=== PATIENT | male | born 1980 | race Caucasian/White ===

== ENCOUNTER 2021-05-30 19:53 | Emergency (ER) | payer OTHER ==
[~2021-05-30] VITALS: Ht 167.6 cm; Wt 81.6 kg
[2021-05-30 20:49] LABS: BASO % 0.3 % (0.0-1.0); HEMATOCRIT 48.1 % (42.0-52.0); LYMPH # 0.7 10*3/uL (1.3-4.4); LYMPH % 9.5 % (27.0-41.0); MEAN CELL VOLUME 84.5 fl (80.0-94.0); MEAN CORPUSCULAR HGB 28.6 pg (27.0-31.0); MEAN CORPUSCULAR HGB CONC 33.9 g/dl (33.0-37.0); MEAN PLATELET VOLUME 9.4 fl (9.6-12.3); MONO # 0.6 10*3/uL (0.1-1.0); MONO % 7.6 % (3.0-9.0); NEUT # 6.4 10*3/uL (2.3-7.9); NEUT % 82.5 % (47.0-73.0); PLATELET COUNT AUTOMATED 158 10*3/uL (130-400); RED BLOOD COUNT 5.69 10*6/uL (4.50-5.90); RED CELL DISTRI WIDTH 12.9 % (0-14.5); WHITE BLOOD COUNT 7.8 10*3/uL (4.8-10.8)
[2021-05-30 21:09] LABS: ALBUMIN 3.8 gm/dl (3.1-4.5); ALKALINE PHOSPHATASE 85 U/L (45-117); BUN 13 mg/dl (7-24); CHLORIDE 107 mmol/L (98-107); CREATININE 1.11 mg/dL (0.70-1.30); LIPASE 56 U/L (73-393); POTASSIUM 3.8 mmol/L (3.5-5.1); SGOT/AST 32 IU/L (3-35); SGPT/ALT 47 U/L (12-78); SODIUM 136 mmol/L (136-145); TOTAL PROTEIN 7.8 gm/dL (6.4-8.2)
== END 2021-05-30 23:27 | disposition home or self-care (01) ==
LOC: ED 19:53
PROVIDERS: Physician Assistant
DX: K52.9 Noninfective gastroenteritis and colitis, unspecified (principal); R11.10 Vomiting, unspecified